=== PATIENT | female | born 1985 | race Two or more races ===

== ENCOUNTER 2018-08-30 10:34 | Emergency (ER) | payer OTHER ==
[~2018-08-30] VITALS: Ht 160 cm; Wt 76.2 kg
[2018-08-30 10:46] VITALS: BP 133/81
[2018-08-30] MEDS ORDERED: PRED20TA PO (10:50)
--- NOTE | 2018-08-30 17:23 | PHYS DOC ---
Past History Past Medical History: Other Past Surgical History: Alcohol Use: None Drug Use: None Adult General Chief Complaint Chief Complaint: SKIN RASH/ABSCESS HPI HPI Patient is a 33-year-old female with a rash. Joint swelling libertarian last night she put on a collagen mask before going she had multiple different types of food none of which that she notes an allergy to previously Nevertheless she woke up this morning with itchy red rash on the face with mild swelling of the face mild swelling of the right eye lid and feeling some fullness of the tongue. She does have a history of lupus she takes Plaquenil she does take prednisone on an as-needed basis for joint flareups but she has not had a flareup in several months. No shortness of breath Review of Systems Review of Systems Constitutional: Denies fever or chills [] Eyes: Denies change in visual acuity, redness, or eye pain [] HENT: Denies nasal congestion or sore throat [] Respiratory: Denies cough or shortness of breath [] Cardiovascular: No additional information not addressed in HPI [] Musculoskeletal: Neurologic: Denies headache, focal weakness or sensory changes [] Endocrine: Denies polyuria or polydipsia [] All other systems were reviewed and found to be within normal limits, except as documented in this note. Allergies Allergies Allergies Coded Allergies Type Severity Reaction Last Updated Verified No Known Drug Allergies 08/30/18 No Physical Exam Physical Exam Constitutional: Well developed, well nourished, no acute distress, non-toxic appearance. [] HENT: Normocephalic, on the face there is erythema and some raised confluent lesions some urticarial component on the right lower cheek tongue oropharynx appear clear with no swelling. Eyes: PERRLA, EOMI, conjunctiva normal, no discharge. [] Neck: Normal range of motion, no tenderness, supple, no stridor. [] Cardiovascular:Heart rate regular rhythm, no murmur [] Lungs & Thorax: Bilateral breath sounds clear to auscultation [] Abdomen: Bowel sounds normal, soft, no tenderness, no masses, no pulsatile masses. [] Skin: Rash as noted above Neurologic: Alert and oriented X 3, normal motor function, normal sensory function, no focal deficits noted. [] Psychologic: Affect normal, judgement normal, mood normal. [] Current Patient Data Vital Signs Vital Signs Date Time Temp Pulse Resp B/P (MAP) Pulse Ox O2 Delivery O2 Flow Rate FiO2 08/30/18 10:46 88 20 98 Room Air EKG EKG [] Radiology/Procedures Radiology/Procedures [] Course & Med Decision Making Course & Med Decision Making Pertinent Labs and Imaging studies reviewed. (See chart for details) 33-year-old female with rash could be contact dermatitis given the above history perception for prednisone was provided. Continue Benadryl as well. We talked about the fact of the prescription that should be a lupus rash although seems less likely as it is more diffuse than she is used to Dragon Disclaimer Dragon Disclaimer This electronic medical record was generated, in whole or in part, using a voice recognition dictation system. Departure Departure: Impression: Primary Impression: Rash Disposition: 01 HOME, SELF-CARE Condition: STABLE Patient Instructions: Rash, [id number] Scripts Prednisone (PREDNISONE) 20 Mg Tablet 2 TAB PO DAILY for 3 Days, #6 TAB Prov: DONNIE BABIN MD 08/30/18 DONNIE BABIN MD Aug 30, 2018 17:23
== END 2018-08-30 10:59 | disposition home or self-care (01) ==
LOC: ER 10:34
DX: R21 Rash and other nonspecific skin eruption (principal)
CPT/HCPCS: 99283

== ENCOUNTER 2018-09-08 17:02 | Emergency (ER) | payer OTHER ==
[~2018-09-08] VITALS: Ht 160 cm; Wt 64.0 kg
[~2018-09-08 17:02] MED LIST: PRED20TA PO
--- NOTE | 2018-09-08 17:37 | EKG ---
[address] [address] Test Date: 2018-09-08 Test Time: 17:33:40 Pat Name: FLAVIO MALDONADO Department: Room: Gender: F Import Export Manager: : [id number] Requested By: LISA VAIL Order Number: [id number] Reading MD: Connor Fregoso MD Measurements Intervals [place] Rate: 77 P: 47 TN: 132 QRS: 65 QRSD: 86 T: 55 QT: 392 QTc: 445 Interpretive Statements SINUS RHYTHM Electronically Signed On 09-09-2018 17:51:01 BAND SEWER by Connor Fregoso MD
--- NOTE | 2018-09-08 17:44 | PHYS DOC ---
Past History Past Medical History: Other Past Surgical History: Alcohol Use: Rarely Drug Use: None Adult General Chief Complaint Chief Complaint: CHEST PAIN HPI HPI Patient is a 33 year old female with history of lupus and DVT in from her primary care physician office because of chest pain. Patient complaining of chest pain in substernal area since yesterday as a constant squeezing pain without radiation. Patient denies shortness of breath, fever and chills, palpitation, vomiting and diarrhea, dizziness. Patient had 1 episode of nausea last night. Patient does not have any cardiac risk factors. Review of Systems Review of Systems Constitutional: Denies fever or chills [] Eyes: Denies change in visual acuity, redness, or eye pain [] HENT: Denies nasal congestion or sore throat [] Respiratory: Denies cough or shortness of breath [] Cardiovascular: No additional information not addressed in HPI [] GI: Denies abdominal pain, nausea, vomiting, bloody stools or diarrhea [] : Denies dysuria or hematuria [] Musculoskeletal: Denies back pain or joint pain [] Integument: Denies rash or skin lesions [] Neurologic: Denies headache, focal weakness or sensory changes [] Endocrine: Denies polyuria or polydipsia [] All other systems were reviewed and found to be within normal limits, except as documented in this note. Allergies Allergies Allergies Coded Allergies Type Severity Reaction Last Updated Verified No Known Drug Allergies 08/30/18 No Physical Exam Physical Exam Constitutional: Well developed, well nourished, no acute distress, non-toxic appearance. [] HENT: Normocephalic, atraumatic, oropharynx moist, no oral exudates, nose normal. [] Eyes: PERRLA, EOMI, conjunctiva normal, no discharge. [] Neck: Normal range of motion, no tenderness, supple, no stridor. [] Cardiovascular:Heart rate regular rhythm, no murmur [] Lungs & Thorax: Bilateral breath sounds clear to auscultation [] Abdomen: Bowel sounds normal, soft, no tenderness, no masses, no pulsatile masses. [] Skin: Warm, dry, no erythema, no rash. [] Back: No tenderness, no CVA tenderness. [] Extremities: No tenderness, no cyanosis, no clubbing, ROM intact, no edema. [] Neurologic: Alert and oriented X 3, normal motor function, normal sensory function, no focal deficits noted. [] Psychologic: Affect normal, judgement normal, mood normal. [] Current Patient Data Vital Signs Vital Signs Date Time Temp Pulse Resp B/P (MAP) Pulse Ox O2 Delivery O2 Flow Rate FiO2 09/08/18 17:17 98.0 89 14 99 EKG EKG EKG interpreted by me. EKG at 1733 showed normal sinus rhythm at rate of 77, no acute ST and T-wave abnormalities.[] Radiology/Procedures Radiology/Procedures [] Impressions: lengthy discussion with the patient I explained results of the blood work EKG chest x-ray/patient follow-up with her primary care provider for atypical chest pain Course & Med Decision Making Course & Med Decision Making Pertinent Labs and Imaging studies are pending. Evaluation of patient in ER showed 33-year-old male patient with history of lupus and DVT presented to ER because of chest pain since yesterday. Patient had unremarkable physical exam and EKG. Labs is pending. Patient care transferred to Dr. Guevara at 1800... Dragon Disclaimer Dragon Disclaimer This electronic medical record was generated, in whole or in part, using a voice recognition dictation system. Departure Departure: Impression: Primary Impression: Chest pain Referrals: ZULEYKA FORTE MD (PCP) LISA VAIL MD Sep 08, 2018 17:44 MILTON STOUT MD Sep 08, 2018 18:40
--- NOTE | 2018-09-08 17:53 | RAD ---
EXAM: Chest, single view. HISTORY: Mitral valve prolapse. Chest pain. COMPARISON: None. FINDINGS: A frontal view of the chest is obtained. There is no infiltrate, pleural effusion or pneumothorax. The heart is normal in size. IMPRESSION: No acute pulmonary finding. Electronically signed by: Kaci Quintero MD (09/08/2018 5:50 PM) [facility]
[2018-09-08 18:09] LABS: BASO # 0.1 x10^3/uL (0.0-0.2); BASO % 1 % (0-3); EOS % 1 % (0-3); HEMATOCRIT 35.7 % (36.0-47.0); HEMOGLOBIN 11.8 g/dL (12.0-15.5); LYMPH # 1.2 x10^3/uL (1.0-4.8); LYMPH % 14 % (24-48); MEAN CORPUSCULAR HEMOGLOBIN 27 pg (25-35); MEAN CORPUSCULAR HGB CONC 33 g/dL (31-37); MEAN CORPUSCULAR VOLUME 83 fL (79-100); MONO # 0.7 x10^3/uL (0.0-1.1); MONO % 9 % (0-9); NEUT # 6.4 x10^3uL (1.8-7.7); NEUT % 76 % (31-73); PLATELET COUNT 226 x10^3/uL (140-400); RED BLOOD COUNT 4.31 x10^6/uL (3.50-5.40); WHITE BLOOD COUNT 8.4 x10^3/uL (4.0-11.0)
[2018-09-08 18:23] LABS: ALBUMIN 3.7 g/dL (3.4-5.0); ALBUMIN/GLOBULIN RATIO 0.9 (1.0-1.7); CALCIUM 8.6 mg/dL (8.5-10.1); CREATININE 0.7 mg/dL (0.6-1.0); GFR 95.8; POTASSIUM 3.4 mmol/L (3.5-5.1); TOTAL BILIRUBIN 0.4 mg/dL (0.2-1.0); TOTAL PROTEIN 7.6 g/dL (6.4-8.2)
[2018-09-08] MEDS ORDERED: LIDO:MAALOX 1:1 20 ML SINGLE DOSE. ONE (18:41)
[2018-09-08] MEDS ORDERED: PANT40TA3 PO (18:43)
[2018-09-08] MEDS ORDERED: LIDO:MAALOX 1:1 20 ML SINGLE DOSE. PO ONE (18:45)
[2018-09-08] MEDS ORDERED: PANTOPRAZOLE 40 MG TABLET. PO ONE (18:45)
[2018-09-08] MEDS ORDERED: PRED-220 PO (19:17)
[2018-09-08] MEDS ORDERED: HYDR-2758 PO (19:17)
[2018-09-08 19:25] VITALS: BP 135/89
[2018-09-08] MEDS ORDERED: HYDROcodone/APAP 5/325MG 1 TAB TABLET PO ONE (19:30)
== END 2018-09-08 19:37 | disposition home or self-care (01) ==
LOC: ER 17:02
DX: R07.2 Precordial pain (principal)
CPT/HCPCS: 36415; 71045; 80053; 83690; 83735; 84484; 85025; 85379; 93005; 99285